=== PATIENT | female | born 1975 | race Caucasian/White ===

== ENCOUNTER 2023-12-29 08:08 | Day surgery (SDC) | payer OTHER ==
[~2023-12-29] VITALS: Ht 149.9 cm; Wt 95.3 kg
[2023-12-29] MEDS ORDERED: fentaNYL citrate 0.05 MG/ML VIAL ONE (08:58)
[2023-12-29] MEDS: fentaNYL citrate 0.05 MG/ML VIAL IVP ONE (09:13)
[2023-12-29] MEDS: LIDOCAINE 2% 100 MG/5 ML UJET TP ONE (09:19)
[2023-12-29] MEDS: EPINEPHrine PFS 0.1 MG/ML SYR IVP ONE (09:35)
[2023-12-29] MEDS ORDERED: LIDOCAINE 2% 100 MG/5 ML UJET TP ONE (12:26)
== END 2023-12-29 10:20 | disposition home or self-care (01) ==
LOC: MDS 08:08 → MMU 08:08 → MDS 10:20
PROVIDERS: ATTEND Internal Medicine Gastroenterology
DX: R19.5 Other fecal abnormalities (principal); K57.30 Diverticulosis of large intestine without perforation or abscess without bleeding; K63.5 Polyp of colon; D64.9 Anemia, unspecified; Z98.891 History of uterine scar from previous surgery
CPT/HCPCS: 45381; 45385; 88305; J0171; J3010